=== PATIENT | male | born 1980 | race Caucasian/White ===

== ENCOUNTER 2018-06-03 20:29 | Emergency (ER) | payer OTHER ==
[2018-06-03] MEDS ORDERED: Lidocaine 1% PF 5 ML VIAL ONE ×2 (20:37→20:42)
[2018-06-03] MEDS ORDERED: Lidocaine 1% 20 ML MDV ONE (20:42)
[2018-06-03] MEDS ORDERED: CEFAZOLIN 1 GM VIAL ONE (21:26)
[2018-06-03] MEDS ORDERED: Sodium Chloride 0.9% 100 ML ONE (21:28)
[2018-06-03] MEDS ORDERED: Bacitracin Zinc 1 Packet ONE (21:33)
[2018-06-03] MEDS ORDERED: Adacel (T-DAP) 0.5 ML SYRINGE ONE (21:55)
--- NOTE | 2018-06-03 22:13 | RAD ---
THREE VIEWS RIGHT INDEX FINGER: 06/03/18 HISTORY: Crush injury right index finger. FINDINGS: There is a fracture involving the tuft of the distal phalanx right index finger with separation of fr acture fragments. There is irregularity involving the nail bed. The findings may be attributable to a n open fracture. There is no dislocation or additional fracture seen. IMPRESSION: Fracture tuft distal phalanx with soft tissue irregularity involving the region of the nail bed. Open fracture is a possibility. POS: JENNIFER
== END 2018-06-03 22:26 | disposition home or self-care (01) ==
LOC: SCSER 20:29
DX: S67.190A Crushing injury of right index finger, initial encounter (principal); S62.630B Displaced fracture of distal phalanx of right index finger, initial encounter for open fracture; W23.0XXA Caught, crushed, jammed, or pinched between moving objects, initial encounter
CPT/HCPCS: 12001; 26750; 90471; 90715; 96365; J0690; J2001; J3490